=== PATIENT | female | born 1960 | race Caucasian/White ===

== ENCOUNTER 2020-07-21 15:42 | Inpatient (IN) | payer MEDICARE, SELFPAY ==
--- NOTE | ~2020-07-21 | XR_ITS ---
EXAMINATION: XR chest 1V portable INDICATION: Congestive heart failure TECHNIQUE: Portable AP chest at 0710 hours COMPARISON: None available FINDINGS: There is a mild diffuse interstitial pattern. Cardiomegaly is noted. There is no pleural ef fusion or pneumothorax. The visualized osseous structures are unremarkable. IMPRESSION: 1. Cardiomegaly with mild pulmonary edema. Reviewed, dictated and finalized at location A.
[2020-07-21 15:57] VITALS: PULSE 77; RESP 20; O2SAT 97
[2020-07-21 16:00] VITALS: BP 127/46; PULSE 77; RESP 20; TEMP 36.9; O2SAT 97
[2020-07-21 16:59] LABS: Glucose Point of Care 187 (65-105)
[2020-07-21 17:43] VITALS: BMI 66.1
--- NOTE | 2020-07-21 19:35 | PM.IMHP ---
H&P: HPI History of Present Illness Date/Time: 07/21/20 19:35 59-year-old female presents from [facility] for shortness of breath fall generalized weakness and bilateral lower extremity edema. Patient was stabilized there and has been transferred here for physical therapy occupational therapy to our swing bed. Patient has no complaints at this time. Chief Complaint: I have seen and examined this patient with Jodi Samuel APN. Review of Systems Review of Systems: All systems reviewed & are unremarkable except as noted in HPI and below PMFSH Past Medical History Medical History CHF (congestive heart failure) CKD (chronic kidney disease) stage 3, GFR 30-59 ml/min Depression with anxiety Diabetes mellitus GERD (gastroesophageal reflux disease) Gout HTN (hypertension) Hypothyroidism Lymphedema Migraine Morbid obesity KAREN on CPAP Osteoarthritis Peripheral neuropathy Salpingo-oophoritis Vitamin D deficiency Surgical History Surgical History H/O colonoscopy H/O: hysterectomy History of appendectomy History of colposcopy History of hip replacement History of nasal septoplasty History of temporal artery biopsy History of tonsillectomy Hx of cardiac cath Hx of cholecystectomy Family History Family History Father , Reviewed and noncontributory No problems noted. Social History Social History Smoking status: Never smoker Alcohol intake: never Substance use: never Spiritual care concerns: No Meds Home Medications and Allergies Home Medications Medication Instructions Recorded Confirmed Type Adults Multivitamin 1 tablet PO DAILY 07/21/20 07/21/20 History Humulin N NPH U-100 Insulin 22 unit SUBCUT QPM 07/21/20 07/21/20 History L.acidoph-B.lactis-B.longum 1 cap PO DAILY 07/21/20 07/21/20 History Novolin N NPH U-100 Insulin 30 unit SUBCUT QAM 07/21/20 07/21/20 History albuterol sulfate [ProAir HFA] 2 puff INHALATION QID PRN 07/21/20 07/21/20 History atorvastatin [Lipitor] 80 mg PO DAILY 07/21/20 07/21/20 History calcium carbonate 1,000 mg PO DAILY 07/21/20 07/21/20 History cholecalciferol (vitamin D3) 25 mcg PO DAILY 07/21/20 07/21/20 History [Vitamin D3] colchicine 0.6 mg PO DAILY 07/21/20 07/21/20 History escitalopram oxalate 20 mg PO DAILY 07/21/20 07/21/20 History famotidine 40 mg PO BID 07/21/20 07/21/20 History gabapentin 400 mg PO TID 07/21/20 07/21/20 History lisinopril 5 mg PO DAILY 07/21/20 07/21/20 History magnesium hydroxide 400 mg PO BID 07/21/20 07/21/20 History magnesium oxide 400 mg PO DAILY 07/21/20 07/21/20 History metoprolol succinate 50 mg PO DAILY 07/21/20 07/21/20 History nystatin 1 applic TOPICAL TID 07/21/20 07/21/20 History ondansetron 8 mg PO Q8H PRN 07/21/20 07/21/20 History potassium chloride 40 meq PO TID 07/21/20 07/21/20 History promethazine 50 mg IM Q6H PRN 07/21/20 07/21/20 History pyridoxine (vitamin B6) 100 mg PO DAILY 07/21/20 07/21/20 History sumatriptan succinate [Imitrex] 100 mg PO ONCE PRN 07/21/20 07/21/20 History tizanidine 2 mg PO HS 07/21/20 07/21/20 History torsemide 40 mg PO BID 07/21/20 07/21/20 History triamcinolone acetonide 1 applic TOPICAL BID 07/21/20 07/21/20 History clonazepam 1 mg PO DAILY #30 tablet 07/24/20 Rx hydrocodone-acetaminophen 1 tablet PO Q6H PRN #10 tablet 07/24/20 Rx levothyroxine [Synthroid] 112 mcg PO DAILY@0630 #30 tablet 07/24/20 Rx miconazole nitrate 1 applic TOPICAL TID #30 g 07/24/20 Rx mirtazapine 30 mg PO HS #30 tablet 07/24/20 Rx ondansetron 4 mg PO Q6H PRN #30 tablet 07/24/20 Rx pantoprazole [Protonix] 20 mg PO QAM 30 Days #30 tablet 07/24/20 Rx paroxetine HCl 30 mg PO QPM #30 tablet 07/24/20 Rx risperidone [Risperdal] 0.5 mg PO DAILY #30 tablet 07/24/20 Rx Allergies Allergy/AdvReac Type S
--- NOTE | 2020-07-21 21:01 | PC.NURSE ---
MD notified that patient c/o pain and nausea. New orders received.
[2020-07-21] MEDS: TIZANIDINE HCL 2 MG TABLET PO (21:05)
[2020-07-21] MEDS: MIRTAZAPINE 15 MG TABLET 30 MG PO (21:05)
[2020-07-21] MEDS: HYDROcodone/acetaminophen (*CRX) 5-325 MG TABLET 1 TAB PO (21:06)
[2020-07-21] MEDS: ONDANSETRON HCL ODT 4 MG TABLET PO (21:06)
[2020-07-21 22:35] LABS: Glucose Point of Care 148 (65-105)
[2020-07-21 23:31] VITALS: BP 136/52; PULSE 75; RESP 20; TEMP 36.3; O2SAT 92
[2020-07-22] MEDS: HYDROcodone/acetaminophen (*CRX) 5-325 MG TABLET 1 TAB PO ×2 (03:11→14:19)
[2020-07-22] MEDS: LEVOTHYROXINE SODIUM 100 MCG TABLET PO (05:30)
[2020-07-22 06:02] LABS: Potassium 3.5 mmol/L (3.5-5.1)
[2020-07-22 07:40] VITALS: BP 131/65; PULSE 77; RESP 20; TEMP 37.1; O2SAT 96
[2020-07-22 08:21] LABS: Glucose Point of Care 114 (65-105)
[2020-07-22] MEDS: MICONAZOLE NITRATE 2% CREAM 30 GM TUBE 1 APPLIC TOPICAL ×3 (09:22→16:11)
[2020-07-22] MEDS: TORSEMIDE 20 MG TABLET 40 MG PO ×2 (09:35→16:11)
[2020-07-22] MEDS: ACIDOPHILUS/BULGARICUS CHEWABLE TABLET 1 TABLET BY MOUTH (09:35)
[2020-07-22] MEDS: ESCITALOPRAM OXALATE 10 MG TABLET 20 MG PO (09:36)
[2020-07-22] MEDS: ATORVASTATIN 40 MG TABLET 80 MG PO (09:36)
[2020-07-22 09:37] VITALS: PULSE 77
[2020-07-22] MEDS: POTASSIUM CHLORIDE 20 MEQ TABLET 40 MEQ PO ×3 (09:37→16:11)
[2020-07-22] MEDS: METOPROLOL SUCCINATE EXT REL 50 MG TABCR PO (09:37)
[2020-07-22] MEDS: CALCIUM CARBONATE (OSCAL) 500 MG TABLET 1000 MG PO (09:37)
[2020-07-22] MEDS: clonazePAM (*CRX) 0.5 MG TABLET 1 MG PO (09:37)
[2020-07-22] MEDS: CHOLECALCIFEROL 1,000 UNITS TABLET 1000 UNITS PO (09:37)
[2020-07-22] MEDS: THERAPEUTIC MULTIVITAMINS/MINERALS TAB (*BKC) 1 TABLET PO (09:38)
[2020-07-22] MEDS: GABAPENTIN 400 MG CAPSULE PO ×3 (09:38→16:11)
[2020-07-22] MEDS: risperiDONE 0.25 MG TABLET 0.5 MG PO (09:38)
[2020-07-22] MEDS: FAMOTIDINE 20 MG TABLET 40 MG PO (09:38)
[2020-07-22] MEDS: COLCHICINE 0.6 MG TABLET PO (09:38)
[2020-07-22] MEDS: lisinopriL 5 MG TABLET PO (09:38)
[2020-07-22] MEDS: INSULIN HUMAN NPH (*BKC) 100 UNITS/ML 30 UNITS SUB-Q (09:39)
[2020-07-22 12:01] LABS: Glucose Point of Care 186 (65-105)
--- NOTE | 2020-07-22 13:05 | P.PN_ITS ---
Progress Note: A&P Assessment and Plan (1) Weakness: Code(s): R53.1 - Weakness <JF Fowler - Last Filed: 07/22/20 14:12> Status: Acute <Jodi SuJF Smith - Last Filed: 07/22/20 14:12> Assessment and Plan: ? Exhibit tolerance during physical activity as evidenced by a normal fluctuation of vital signs during physical activity. ? Patient will be ability to perform required activities of daily living. ? Provide appropriate nutrition for healing and strength. ? Use appropriate to prevent falls. ? Continue physical therapy/occupational therapy. * CT of the head on 07/06/2020 and outside hospital no acute intracranial abnormalities * VQ scan and bilateral Dopplers negative for PE or DVT <JF Fowler - Last Filed: 07/22/20 14:12> (2) GERD (gastroesophageal reflux disease): Qualifiers: Esophagitis presence: without esophagitis Qualified Code(s): K21.9 - Gastro-esophageal reflux disease without esophagitis <JF Fowler - Last Filed: 07/22/20 14:12> Code(s): K21.9 - Gastro-esophageal reflux disease without esophagitis <JF Fowler - Last Filed: 07/22/20 14:12> Status: Acute <JF Fowler - Last Filed: 07/22/20 14:12> Assessment and Plan: * Started pantoprazole <JF Fowler - Last Filed: 07/22/20 14:12> (3) CKD (chronic kidney disease) stage 3, GFR 30-59 ml/min: Code(s): N18.30 - Chronic kidney disease, stage 3 unspecified <JF Fowler - Last Filed: 07/22/20 14:12> Status: Acute <JF Fowler Last Filed: 07/22/20 14:12> Assessment and Plan: * Creatinine was stable at outside hospital. Baseline creatinine 1.3-1.7 * Avoid nephrotoxins agent * Renal dose medication * BMP in a.m. <JF Fowler - Last Filed: 07/22/20 14:12> (4) HTN (hypertension): Qualifiers: Hypertension type: essential hypertension Qualified Code(s): I10 - Essential (primary) hypertension <Jodi SamuelJF - Last Filed: 07/22/20 14:12> Code(s): I10 - Essential (primary) hypertension <Olegariolucio Kristina JF Samuel - Last Filed: 07/22/20 14:12> Status: Acute <Jodi SamuelJF - Last Filed: 07/22/20 14:12> Assessment and Plan: * Vital signs as ordered * Stable * Will adjust medication as needed * Continue lisinopril 5 mg to * EKG at outside hospital showed no acute ST/T wave changes <Olegariolucio SuHortencia JimmieJF - Last Filed: 07/22/20 14:12> (5) Morbid obesity: Code(s): E66.01 - Morbid (severe) obesity due to excess calories <Olegariolucio SuJF Smith - Last Filed: 07/22/20 14:12> Status: Acute <Jodi SamuelJF - Last Filed: 07/22/20 14:12> Assessment and Plan: * Educated on healthy lifestyle <Olegariolucio SuJF Smith - Last Filed: 07/22/20 14:12> (6) KAREN on CPAP: Code(s): G47.33 - Obstructive sleep apnea (adult) (pediatric); Z99.89 - Dependence on other enabling machines and devices <Olegariolucio SuJF Smith - Last Filed: 07/22/20 14:12> Status: Acute <Jodi Acevedo JF Samuel - Last Filed: 07/22/20 14:12> Assessment and Plan: * Continue use of CPAP <Olegariolucio SuJF Smith - Last Filed: 07/22/20 14:12> (7) Migraine: Qualifiers: Intractability: intractable Migraine type: unspecified Status migrainosus presence: without status migrainosus Qualified Code(s): G43.919 - Migraine, unspecified, intractable, without status migrainosus <Jodi
--- NOTE | 2020-07-22 13:05 | WPDPN ---
Progress Note: A&P Assessment and Plan (1) Weakness: Code(s): R53.1 - Weakness <JF Fowler - Last Filed: 07/22/20 14:12> Status: Acute <Jodi SuJF Smith - Last Filed: 07/22/20 14:12> Assessment and Plan: ? Exhibit tolerance during physical activity as evidenced by a normal fluctuation of vital signs during physical activity. ? Patient will be ability to perform required activities of daily living. ? Provide appropriate nutrition for healing and strength. ? Use appropriate to prevent falls. ? Continue physical therapy/occupational therapy. CT of the head on 07/06/2020 and outside hospital no acute intracranial abnormalities VQ scan and bilateral Dopplers negative for PE or DVT <JF Fowler - Last Filed: 07/22/20 14:12> (2) GERD (gastroesophageal reflux disease): Qualifiers: Esophagitis presence: without esophagitis Qualified Code(s): K21.9 - Gastro-esophageal reflux disease without esophagitis <JF Fowler - Last Filed: 07/22/20 14:12> Code(s): K21.9 - Gastro-esophageal reflux disease without esophagitis <JF Fowler - Last Filed: 07/22/20 14:12> Status: Acute <JF Fowler - Last Filed: 07/22/20 14:12> Assessment and Plan: Started pantoprazole <JF Fowler - Last Filed: 07/22/20 14:12> (3) CKD (chronic kidney disease) stage 3, GFR 30-59 ml/min: Code(s): N18.30 - Chronic kidney disease, stage 3 unspecified <JF Fowler - Last Filed: 07/22/20 14:12> Status: Acute <FJ Fowler - Last Filed: 07/22/20 14:12> Assessment and Plan: Creatinine was stable at outside hospital. Baseline creatinine 1.3-1.7 Avoid nephrotoxins agent Renal dose medication BMP in a.m. <JF Fowler - Last Filed: 07/22/20 14:12> (4) HTN (hypertension): Qualifiers: Hypertension type: essential hypertension Qualified Code(s): I10 - Essential (primary) hypertension <Olegariolucio uSJF Smith - Last Filed: 07/22/20 14:12> Code(s): I10 - Essential (primary) hypertension <Olegariolucio SuJF Smith - Last Filed: 07/22/20 14:12> Status: Acute <Olegariolucio SuJF Smith - Last Filed: 07/22/20 14:12> Assessment and Plan: Vital signs as ordered Stable Will adjust medication as needed Continue lisinopril 5 mg to EKG at outside hospital showed no acute ST/T wave changes <JF Fowler - Last Filed: 07/22/20 14:12> (5) Morbid obesity: Code(s): E66.01 - Morbid (severe) obesity due to excess calories <JF Fowler - Last Filed: 07/22/20 14:12> Status: Acute <Jodi SuJF Smith - Last Filed: 07/22/20 14:12> Assessment and Plan: Educated on healthy lifestyle <JF Fowler - Last Filed: 07/22/20 14:12> (6) KAREN on CPAP: Code(s): G47.33 - Obstructive sleep apnea (adult) (pediatric); Z99.89 - Dependence on other enabling machines and devices <JF Fowler - Last Filed: 07/22/20 14:12> Status: Acute <Jodi SuJF Smith - Last Filed: 07/22/20 14:12> Assessment and Plan: Continue use of CPAP <JF Fowler - Last Filed: 07/22/20 14:12> (7) Migraine: Qualifiers: Intractability: intractable Migraine type: unspecified Status migrainosus presence: without status migrainosus Qualified Code(s): G43.919 - Migraine, unspecified, intractable, without status migrainosus <JF Fowler - Last Filed: 07/22/20 14:12> Code(s): G43.909 - Migraine, unspecified, not intractable, without status migrainosus <JF Fowler - Last Filed: 07/22/20 14:12> Status: Acute <JF Fowler - Last Filed: 07/22/20 14:12> Assessment and Plan: Continue Imitrex 100 mg 3 times [place]
[2020-07-22 15:45] VITALS: BP 132/57; PULSE 71; RESP 20; TEMP 37.1; O2SAT 96
[2020-07-22] MEDS: SUMAtriptan SUCCINATE 25 MG TABLET 100 MG PO (16:10)
[2020-07-22 16:47] LABS: Glucose Point of Care 241 (65-105)
[2020-07-22] MEDS: INSULIN HUMAN NPH (*BKC) 100 UNITS/ML 22 UNITS SUB-Q (17:52)
[2020-07-22] MEDS: PARoxetine 20 MG TABLET 30 MG PO (17:53)
[2020-07-22] MEDS: TIZANIDINE HCL 2 MG TABLET PO (20:56)
[2020-07-22] MEDS: MIRTAZAPINE 15 MG TABLET 30 MG PO (20:56)
[2020-07-22] MEDS: TOLNAFTATE 1% POWDER 45 GM BTL 1 APPLIC TOPICAL (20:56)
[2020-07-22 21:15] LABS: Glucose Point of Care 180 (65-105)
[2020-07-22 23:43] VITALS: BP 133/48; PULSE 69; RESP 24; TEMP 36.2; O2SAT 93
[2020-07-22 23:47] VITALS: BP 133/48; PULSE 69; RESP 24; TEMP 36.2; O2SAT 93
[2020-07-23] MEDS: HYDROcodone/acetaminophen (*CRX) 5-325 MG TABLET 1 TAB PO ×4 (05:13→22:59)
[2020-07-23 05:14] LABS: Hematocrit 40.7 % (35.0-49.0); Hemoglobin 12.6 g/dL (12.0-15.0); Mean Corpuscular Hemoglobin 32.2 pg (27.0-31.0); Mean Corpuscular Volume 104.1 fL (78.0-102.0); Mean Platelet Volume 10.4 fl (9.2-11.8); Platelet Count Result 236 K/mm3 (150-420); Red Blood Count 3.91 M/mm3 (4.20-5.40); Red Cell Distribution Width 13.8 % (11.6-14.4); White Blood Count 6.7 K/mm3 (4.8-10.8)
[2020-07-23] MEDS: LEVOTHYROXINE SODIUM 100 MCG TABLET PO (05:36)
[2020-07-23 05:42] LABS: Alanine Aminotransferase 29 U/L (14-59); Albumin Level 3.2 g/dL (3.4-5.0); Alkaline Phosphatase 158 U/L (46-116); Anion Gap 3 mmol/L (8-16); Aspartate Amino Transferase 21 U/L (15-37); Bilirubin,Total 0.7 mg/dL (0.00-1.00); Blood Urea Nitrogen 20 mg/dL (7-18); Carbon Dioxide 39 mmol/L (21-32); Chloride 100 mmol/L (98-108); Estimated CRCL calculation 59 ml/min; Estimated Glomerular Filt Rate 30; Glucose 133 mg/dL (70-99); Magnesium 1.7 mg/dL (1.8-2.4); Osmolality Calculated 298 mOsm/kg (285-295); Potassium 3.8 mmol/L (3.5-5.1); Sodium 142 mmol/L (136-145); Total Protein 6.5 g/dL (6.4-8.2)
[2020-07-23 05:45] LABS: NT Pro B Type Natriuretic Pept 57 pg/mL (0-125)
[2020-07-23 05:46] LABS: Free T4 Free Thyroxine Reflex 1.14 ng/dL (0.76-1.46)
[2020-07-23 07:19] LABS: Glucose Point of Care 141 (65-105)
[2020-07-23 07:50] VITALS: BP 99/33; PULSE 70; RESP 18; TEMP 36.9; O2SAT 96
--- NOTE | 2020-07-23 08:11 | PM.EVENT ---
Event Note Event Note Event Note: Tsh 10.20 . Increased Synthroid from 100mcg to 112 mcg. Will need to rechcek in 4-6 weeks.
[2020-07-23 08:15] VITALS: PULSE 70
[2020-07-23] MEDS: INSULIN HUMAN NPH (*BKC) 100 UNITS/ML 30 UNITS SUB-Q (08:18)
[2020-07-23] MEDS: CHOLECALCIFEROL 1,000 UNITS TABLET 1000 UNITS PO (08:24)
[2020-07-23] MEDS: risperiDONE 0.25 MG TABLET 0.5 MG PO (08:24)
[2020-07-23] MEDS: GABAPENTIN 400 MG CAPSULE PO ×3 (08:24→17:16)
[2020-07-23] MEDS: PANTOPRAZOLE SOD SESQUIHYDRATE 20 MG TAB PO (08:24)
[2020-07-23] MEDS: COLCHICINE 0.6 MG TABLET PO (08:24)
[2020-07-23] MEDS: POTASSIUM CHLORIDE 20 MEQ TABLET 40 MEQ PO ×3 (08:25→17:16)
[2020-07-23] MEDS: CALCIUM CARBONATE (OSCAL) 500 MG TABLET 1000 MG PO (08:25)
[2020-07-23] MEDS: ESCITALOPRAM OXALATE 10 MG TABLET 20 MG PO (08:25)
[2020-07-23] MEDS: ATORVASTATIN 40 MG TABLET 80 MG PO (08:26)
[2020-07-23] MEDS: THERAPEUTIC MULTIVITAMINS/MINERALS TAB (*BKC) 1 TABLET PO (08:26)
[2020-07-23] MEDS: TORSEMIDE 20 MG TABLET 40 MG PO ×2 (08:26→17:17)
[2020-07-23] MEDS: FAMOTIDINE 20 MG TABLET 40 MG PO (08:27)
[2020-07-23] MEDS: ACIDOPHILUS/BULGARICUS CHEWABLE TABLET 1 TABLET BY MOUTH (08:29)
[2020-07-23] MEDS: TRIAMCINOLONE ACET 0.1% CREAM 15 GM TUBE 1 APPLIC TOPICAL ×2 (08:34→17:18)
[2020-07-23] MEDS: TOLNAFTATE 1% POWDER 45 GM BTL 1 APPLIC TOPICAL ×2 (09:32→20:08)
[2020-07-23 11:38] LABS: Glucose Point of Care 203 (65-105)
--- NOTE | 2020-07-23 14:17 | PCOTNOTE ---
On 07/23/20, the student, [Yelena Morris ], provided care and completed [facility] documentation on this patient. I have reviewed the student's documentation and agree with the findings.
[2020-07-23 16:00] VITALS: BP 123/43; PULSE 74; RESP 16; TEMP 37.1; O2SAT 97
[2020-07-23 16:40] LABS: Glucose Point of Care 159 (65-105)
[2020-07-23] MEDS: PARoxetine 20 MG TABLET 30 MG PO (17:17)
[2020-07-23] MEDS: INSULIN HUMAN NPH (*BKC) 100 UNITS/ML 22 UNITS SUB-Q (17:23)
[2020-07-23] MEDS: MICONAZOLE NITRATE 2% CREAM 30 GM TUBE 1 APPLIC TOPICAL (17:47)
[2020-07-23] MEDS: MIRTAZAPINE 15 MG TABLET 30 MG PO (20:06)
[2020-07-23] MEDS: TIZANIDINE HCL 2 MG TABLET PO (20:06)
--- NOTE | 2020-07-23 20:19 | PC.NURSE ---
Abdias wraps to lower extremities jenny.removed. Patient tolerated well. States at home she had speciality wraps from [facility] she wears 24hours daily. Tolnaftate 1% to pannicus. Skin reddened/dry, with no open wounds. Patient states she is having pain to her back and bottom of 6 , states she doesn't want pain pill until 2100 when she goes to bed. Discussed CPAP use and requests that applied after she receives pain pill. Discussed need to turn and reposition every two hours to prevent pressure sores. Patient verbalizes understanding.
[2020-07-23 20:20] LABS: Glucose Point of Care 210 (65-105)
[2020-07-23 23:00] VITALS: PULSE 74; RESP 20; O2SAT 97
[2020-07-23 23:20] VITALS: BP 110/38; PULSE 74; RESP 20; TEMP 36.4; O2SAT 97
[2020-07-24] MEDS: HYDROcodone/acetaminophen (*CRX) 5-325 MG TABLET 1 TAB PO ×2 (04:42→08:54)
[2020-07-24] MEDS: LEVOTHYROXINE SODIUM 112 MCG TABLET PO (05:56)
[2020-07-24 07:36] LABS: Glucose Point of Care 120 (65-105)
[2020-07-24 07:51] VITALS: BP 140/58; PULSE 80; RESP 16; TEMP 36.9; O2SAT 98
[2020-07-24] MEDS: CHOLECALCIFEROL 1,000 UNITS TABLET 1000 UNITS PO (08:51)
[2020-07-24] MEDS: INSULIN HUMAN NPH (*BKC) 100 UNITS/ML 30 UNITS SUB-Q (08:51)
[2020-07-24] MEDS: ACIDOPHILUS/BULGARICUS CHEWABLE TABLET 1 TABLET BY MOUTH (08:51)
[2020-07-24] MEDS: TRIAMCINOLONE ACET 0.1% CREAM 15 GM TUBE 1 APPLIC TOPICAL (08:51)
[2020-07-24] MEDS: risperiDONE 0.25 MG TABLET 0.5 MG PO (08:52)
[2020-07-24] MEDS: CALCIUM CARBONATE (OSCAL) 500 MG TABLET 1000 MG PO (08:52)
[2020-07-24 08:53] VITALS: PULSE 80
[2020-07-24] MEDS: POTASSIUM CHLORIDE 20 MEQ TABLET 40 MEQ PO ×2 (08:53→13:27)
[2020-07-24] MEDS: METOPROLOL SUCCINATE EXT REL 50 MG TABCR PO (08:53)
[2020-07-24] MEDS: PANTOPRAZOLE SOD SESQUIHYDRATE 20 MG TAB PO (08:53)
[2020-07-24] MEDS: TORSEMIDE 20 MG TABLET 40 MG PO (08:53)
[2020-07-24] MEDS: FAMOTIDINE 20 MG TABLET 40 MG PO (08:54)
[2020-07-24] MEDS: lisinopriL 5 MG TABLET PO (08:54)
[2020-07-24] MEDS: ESCITALOPRAM OXALATE 10 MG TABLET 20 MG PO (08:54)
[2020-07-24] MEDS: TOLNAFTATE 1% POWDER 45 GM BTL 1 APPLIC TOPICAL (08:55)
[2020-07-24] MEDS: GABAPENTIN 400 MG CAPSULE PO ×2 (08:55→13:27)
[2020-07-24] MEDS: COLCHICINE 0.6 MG TABLET PO (08:55)
[2020-07-24] MEDS: ATORVASTATIN 40 MG TABLET 80 MG PO (08:55)
[2020-07-24] MEDS: MICONAZOLE NITRATE 2% CREAM 30 GM TUBE 1 APPLIC TOPICAL ×2 (08:55→13:27)
[2020-07-24] MEDS: THERAPEUTIC MULTIVITAMINS/MINERALS TAB (*BKC) 1 TABLET PO (08:55)
[2020-07-24] MEDS: SUMAtriptan SUCCINATE 25 MG TABLET 100 MG PO (08:59)
[2020-07-24] MEDS: ONDANSETRON HCL ODT 4 MG TABLET PO (09:00)
--- NOTE | 2020-07-24 10:26 | PM.DS ---
DS: Admitting Diagnosis Admitting Diagnosis Admitting Diagnosis: Generalized weakness physical deconditioning DS: Discharge Diagnosis Discharge Diagnosis (1) Weakness: Code(s): R53.1 - Weakness Status: Acute Assessment and Plan: ? Exhibit tolerance during physical activity as evidenced by a normal fluctuation of vital signs during physical activity. ? Patient will be ability to perform required activities of daily living. ? Provide appropriate nutrition for healing and strength. ? Use appropriate to prevent falls. ? Continue physical therapy/occupational therapy. CT of the head on 07/06/2020 and outside hospital no acute intracranial abnormalities VQ scan and bilateral Dopplers negative for PE or DVT (2) GERD (gastroesophageal reflux disease): Qualifiers: Esophagitis presence: without esophagitis Qualified Code(s): K21.9 - Gastro-esophageal reflux disease without esophagitis Code(s): K21.9 - Gastro-esophageal reflux disease without esophagitis Status: Acute Assessment and Plan: Continue pantoprazole (3) CKD (chronic kidney disease) stage 3, GFR 30-59 ml/min: Code(s): N18.30 - Chronic kidney disease, stage 3 unspecified Status: Acute Assessment and Plan: Creatinine was stable at outside hospital.1.73 now Baseline creatinine 1.3-1.7 Avoid nephrotoxins agent Renal dose medication (4) HTN (hypertension): Qualifiers: Hypertension type: essential hypertension Qualified Code(s): I10 - Essential (primary) hypertension Code(s): I10 - Essential (primary) hypertension Status: Acute Assessment and Plan: Stable Continue lisinopril 5 mg to EKG at outside hospital showed no acute ST/T wave changes (5) Morbid obesity: Code(s): E66.01 - Morbid (severe) obesity due to excess calories Status: Acute Assessment and Plan: Educated on healthy lifestyle (6) KAREN on CPAP: Code(s): G47.33 - Obstructive sleep apnea (adult) (pediatric); Z99.89 - Dependence on other enabling machines and devices Status: Acute Assessment and Plan: Continue use of CPAP (7) Migraine: Qualifiers: Migraine type: unspecified Status migrainosus presence: without status migrainosus Intractability: intractable Qualified Code(s): G43.919 - Migraine, unspecified, intractable, without status migrainosus Code(s): G43.909 - Migraine, unspecified, not intractable, without status migrainosus Status: Acute Assessment and Plan: Continue Imitrex 100 mg 3 times daily as needed (8) CHF (congestive heart failure): Qualifiers: Heart failure type: diastolic Heart failure chronicity: chronic Qualified Code(s): I50.32 - Chronic diastolic (congestive) heart failure Code(s): I50.9 - Heart failure, unspecified Status: Acute Assessment and Plan: Echo on 03/24/2019 with a EF of 62% left ventricle diastolic function is abnormal grade 1 impaired relaxation, the right ventricle size is mildly enlarged, right ventricle systolic function is normal, no evidence of pericardial effusion. BNP at outside hospital 171, repeat 57 Chest x-ray at outside hospital showed cardiomegaly Continue torsemide (9) Hypothyroidism: Qualifiers: Hypothyroidism type: unspecified Qualified Code(s): E03.9 - Hypothyroidism, unspecified Code(s): E03.9 - Hypothyroidism, unspecified Status: Acute Assessment and Plan: TSH at outside hospital 5.61 (10) Peripheral neuropathy: Qualifiers: Peripheral neuropathy type: polyneuropathy, unspecified Qualified Code(s): G62.9 - Polyneuropathy, unspecified Code(s): G62.9 - Polyneuropathy, unspecified Status: Acute Assessment and Plan: Continue gabapentin (11) Depression with anxiety: Code(s): F41.8 - Other specified anxiety disorders Status: Acute Assessment and Plan:
[2020-07-24 11:51] LABS: Glucose Point of Care 188 (65-105)
--- NOTE | 2020-07-24 14:59 | PC.NURSE ---
Patient transported off of floor via stretcher, [facility]. Accepting facility [facility]. All belongings sent with patient. Report called to Aranza.
--- OUTSIDE RECORDS SUMMARY | 2020-08-01 12:44 | XMS_ITS ---
:1960 Author Organization [facility] Address [address] [place] [id number] [place] [id number] Care Team Providers Name Role Phone Marleen Cordova MD Primary Care Provider MD Azael Unavailable ALVA Marsh, [employer] Vascular/Aboriginal Education Worker Coordinator Reason for Referral (Routine) Status Reason Specialty Diagnoses / Referred By Contact Refe rred To Procedures Contact New Request Procedures Lucamary anneRahul Home O2 oma Case MD [address] [place] [id number] Phone: (Routine) Status Reason Specialty Diagnoses / Referred By Contact Refe rred To Procedures Contact New Request Procedures Sjs 6 Cvcu Wound Ostomy Eval [address] [facility] and [facility]
== END 2020-07-24 14:55 | DRG 948 ==
PROVIDERS: Nurse Practitioner; Admitting Provider Emergency Medicine; Visit Provider Emergency Medicine
DX: R53.1 Weakness (principal); I13.0 Hypertensive heart and chronic kidney disease with heart failure and stage 1 through stage 4 chronic kidney disease, or unspecified chronic kidney disease; I50.32 Chronic diastolic (congestive) heart failure; N18.30 Chronic kidney disease, stage 3 unspecified; E11.42 Type 2 diabetes mellitus with diabetic polyneuropathy; E11.22 Type 2 diabetes mellitus with diabetic chronic kidney disease; E55.9 Vitamin D deficiency, unspecified; E03.9 Hypothyroidism, unspecified; E66.01 Morbid (severe) obesity due to excess calories; I89.0 Lymphedema, not elsewhere classified; K21.9 Gastro-esophageal reflux disease without esophagitis; M19.90 Unspecified osteoarthritis, unspecified site; M10.9 Gout, unspecified; G43.909 Migraine, unspecified, not intractable, without status migrainosus; G47.33 Obstructive sleep apnea (adult) (pediatric); F32.9 Major depressive disorder, single episode, unspecified; F41.9 Anxiety disorder, unspecified; Z96.649 Presence of unspecified artificial hip joint; Z79.4 Long term (current) use of insulin; Z90.49 Acquired absence of other specified parts of digestive tract; Z90.710 Acquired absence of both cervix and uterus
CPT/HCPCS: 36415; 71045; 80053; 82948; 83735; 83880; 84132; 84439; 84443; 85027; 97110; 97163; 97166; 97530; 97535; A9270; J1815